=== PATIENT | female | born 1985 | race Caucasian/White ===

== ENCOUNTER → 2018-05-05 | Outpatient (CLI) | payer OTHER | LOC: FIMAGING 07:25 | PROVIDERS: ATTEND Advanced Practice Midwife | DX: O09.292 Supervision of pregnancy with other poor reproductive or obstetric history, second trimester (principal); O99.282 Endocrine, nutritional and metabolic diseases complicating pregnancy, second trimester; Z3A.20 20 weeks gestation of pregnancy ==

== ENCOUNTER 2018-08-30 19:50 | Observation (INO) | payer SELFPAY | END 2018-08-30 21:33 | disposition home or self-care (01) | LOC: FLD 19:50 | PROVIDERS: ADMIT Advanced Practice Midwife; ATTEND Advanced Practice Midwife | DX: Z03.71 Encounter for suspected problem with amniotic cavity and membrane ruled out (principal); Z3A.36 36 weeks gestation of pregnancy | CPT/HCPCS: G0378 ==

== ENCOUNTER 2018-09-19 16:42 | Inpatient (IN) | payer SELFPAY ==
[2018-09-19] MEDS ORDERED: LR 1,000 ML IV PRN (16:48)
[2018-09-19] MEDS ORDERED: MISOPROSTOL 200 MCG TAB PO PRN (16:48)
[2018-09-19] MEDS ORDERED: OLIVE OIL 118 ML BTL MISC PRN (16:48)
[2018-09-19] MEDS ORDERED: OXYTOCIN/RINGERS LACTATE 1,000 ML IV PRN (16:48)
[2018-09-19] MEDS ORDERED: AMMONIA AROMATIC 1 EACH AMP IH PRN (16:48)
[2018-09-19] MEDS ORDERED: LIDOCAINE 1% 300 MG/30 ML SDV SC PRN (16:48)
[2018-09-19] MEDS ORDERED: TERBUTALINE SULFATE 1 MG/ML VIAL IV PRN (16:48)
[2018-09-19] MEDS ORDERED: EPSOM SALT 454 GM TP PRN (16:48)
[2018-09-19] MEDS ORDERED: IBUPROFEN 600 MG TAB PO PRN (16:48)
[2018-09-19 18:36] LABS: PLATELET COUNT 206 10^3/uL (150-400)
[2018-09-19] MEDS ORDERED: MISOPROSTOL 200 MCG TAB ONE (18:39)
[2018-09-19] MEDS ORDERED: OXYTOCIN 10 UNIT/ML VIAL ONE (18:39)
[2018-09-19] MEDS ORDERED: LIDOCAINE 1% 300 MG/30 ML SDV ONE (18:39)
[2018-09-19] MEDS ORDERED: AMMONIA AROMATIC 1 EACH AMP IH ONE (18:39)
[2018-09-19] MEDS ORDERED: TERBUTALINE SULFATE 1 MG/ML VIAL ONE (18:39)
[2018-09-19] MEDS ORDERED: OLIVE OIL 118 ML BTL ONE (18:39)
[2018-09-19] MEDS ORDERED: PENICILLIN G POTASSIUM 5,000,000 UNIT in D5W 150 ML IV ONE (18:58)
--- NOTE | 2018-09-19 19:33 | PDGENHP ---
History and Physical History and Physical: Care: [facility] HPI: Patient is a 33 yo G 4 P 1 @ 39.4 weeks that presents to L&D with complaints of uterine contractions since last night getting stronger and q 2-3 minutes as well as SROM at 1530, clear fluid. EDC: 09-22-2018 which is based on LMP: which is known and consistent with Ultrasound at 7 weeks. Her is complicated by: history of previous csection Review of Systems: Constitutional: Denies any fever, chills, or fatigue HEENT: denies any visual changes, difficulty swallowing, hearing loss Cardiovascular: Denies any chest pain, palpitations, leg swelling Respiratory: denies any cough, wheezing, or shortness of breathe GI: Denies any nausea, vomiting, diarrhea, constipation : denies any dysuria, urgency, frequency, vaginal bleeding Musculoskeletal: denies any muscle or bone pain Skin: denies any rashes Neuro: denies any headache, seizures, lightheadedness, dizziness, or loss of consciousness Psychiatric: denies any depression, anxiety, or SI/HI thoughts HISTORY: Previous OB history: Low transverse primary csection for intolerance to labor. PROM'd and was on pitocin for 20 hours. Past medical history: hypothyroid - levels have been normal with medication through out ; history of asthma occasionally uses albuterol Past surgical history: csection; ankle surgery, wisdome teeth Social: Denies any alcohol, tobacco, or drug use. Family history: Not relevant Medications: PNV Allergies (list reaction): Codeine LABS: Rh: A+ ABS: Neg Rubella: Immune HbsAg: NR HIV: NR VDRL: NR 1hr: 74 GC: Neg Chlamydia: Neg GBS: + BMI: (prepreg) 25 PHYSICAL EXAM: Constitutional: WN, A&Ox3 HEENT: normocephalic atraumatic, supple Skin: Warm, dry, intact Heart: RRR, no murmur Chest: CTA-B Abdomen: Soft, nontender, gravid SVE: Declined Extremities: neg edema, negative homans sign Neuro: grossly normal Psych: normal affect U/S: Vertex; posterior presentation assessment: FHT baseline 125-135; +accels, occasional variable decels, moderate variability Contractions: irregular; when she first arrived q 3 minutes however have spaced out quite a bit after several attempts to start IV Assessment: 1) 33 yo G 4 P 1 with IUP@ 39.3 2) latent labor 3) GBS + 4) Overall Cat 1 FHR tracing 5) TOLAC 6) Posterior presentation Plan: 1) Admit to L&D 2) Dr Lassiter notified of admit and status; will advise when patient becomes active so she can be in house per protocol for as well as anesthesia 3) Initially declined antibiotics for GBS + status; after discussing further with her and her is now consenting to treatment 4) Encouraging walking, nipple stimulation and position changes to encourage labor 5) Consider pitocin augmentation however patient is reluctant to do this; will discuss if labor does not progress over the next several hours 6) Continuous monitoring Today's visit was approximately 30 min, of which >50% of visit, was spent face to face with pt on direct counseling/coordination of care.
[2018-09-19] MEDS: CALCIUM CARBONATE 500 MG CHEWABLE TAB PO PRN (20:10)
--- NOTE | 2018-09-19 21:55 | OBPROG ---
Labor Progress Note Assessment/Plan: Assessment: Plan: 09/19/18 21:51 A: Patient not in active labor or regularly socorro. P: Pt planning on resting for now. Will advise ambulation when she wakes up and readdress the recommendation for pitocin augmentation. Pt is very concerned about using pitocin as she is concerned that she will have a repeat csection for intolerance. For now continue monitoring. Subjective/Intrapartum Course: 09/19/18 21:49 Pt sleeping. Had encouraged ambulation as well as nipple stimulation however told RN she was tired and wanted to try to sleep with the peanut ball to help baby get into better position. Objective: 09/19/18 17:50 Patient ABO/Rh A POSITIVE 09/19/18 17:50 - SVE Membranes: SROM Amniotic Fluid Color: Clear - Contraction Pattern Assessment Current Contraction Pattern: Irregular - FHR Assessment Freeman FHR (bpm): 130 (+ accels; no decels) FHR Pattern Variability: Moderate FHR Category: 1 Oxytocin Orders Assessment - Pre-Induction/Augmentation Assessment Gestational Age: 39 week(s) and 4 day(s) ICD10 Worksheet Patient Problems: Problems Problem Status Onset Group beta Strep positive Acute Uterine scar from previous delivery Acute Previous section Acute
--- NOTE | 2018-09-19 22:00 | OBPROG ---
Labor Progress Note Assessment/Plan: Assessment: Plan: 09/19/18 21:51 A: Patient not in active labor or regularly socorro. P: Pt planning on resting for now. Will advise ambulation when she wakes up and readdress the recommendation for pitocin augmentation. Pt is very concerned about using pitocin as she is concerned that she will have a repeat csection for intolerance. For now continue monitoring. 09/19/18 21:59 Active labor progressing; Coping well P: Expectant Management Anticipate Subjective/Intrapartum Course: 09/19/18 21:49 Pt sleeping. Had encouraged ambulation as well as nipple stimulation however told RN she was tired and wanted to try to sleep with the peanut ball to help baby get into better position. 09/19/18 21:57 Pt experiencing a lot of back pain. Contractions back to back. Lots of position changes. Has good support from partner, solid waste truck driver and her mother. Tried nitrous, did't like it. Objective: 09/19/18 17:50 Patient ABO/Rh A POSITIVE 09/19/18 17:50 - SVE Membranes: SROM Amniotic Fluid Color: Clear - Contraction Pattern Assessment Current Contraction Pattern: Irregular - FHR Assessment Fereman FHR (bpm): 140 (intermittent monitoring finding fht's 140's to 150's; no decels) Oxytocin Orders Assessment - Pre-Induction/Augmentation Assessment Gestational Age: 39 week(s) and 4 day(s) ICD10 Worksheet Patient Problems: Problems Problem Status Onset Group beta Strep positive Acute Uterine scar from previous delivery Acute Previous section Acute
--- NOTE | 2018-09-19 23:55 | OBPROG ---
Labor Progress Note Assessment/Plan: Assessment: Plan: 09/19/18 21:51 A: Patient not in active labor or regularly socorro. P: Pt planning on resting for now. Will advise ambulation when she wakes up and readdress the recommendation for pitocin augmentation. Pt is very concerned about using pitocin as she is concerned that she will have a repeat csection for intolerance. For now continue monitoring. 09/19/18 21:59 Active labor progressing; Coping well P: Expectant Management Anticipate 09/19/18 23:52 A: PROM; contractions have mostly discontinued Category 2 strip GBS + P: Due for second dose of PCN in next hour Discussed need to augment labor and offered pitocin augmentation. She would like to avoid that so plans to get out of bed and walk to help stimulate contractions. Also discussed nippled stimulation. If contractions have not picked up by 0330 will consider pt will consider starting pitocin augmentation. Subjective/Intrapartum Course: 09/19/18 21:49 Pt sleeping. Had encouraged ambulation as well as nipple stimulation however told RN she was tired and wanted to try to sleep with the peanut ball to help baby get into better position. 09/19/18 21:57 Error; charted on wrong patient 09/19/18 23:50 Pt now awake. States she is having minimal contractions. Objective: 09/19/18 17:50 Patient ABO/Rh A POSITIVE 09/19/18 17:50 - SVE Membranes: SROM Amniotic Fluid Color: Clear - Contraction Pattern Assessment Current Contraction Pattern: Irregular - FHR Assessment Freeman FHR (bpm): 135 (possible variable decel noted however did not picking supervisor well; will continue to monitor) FHR Pattern Variability: Moderate FHR Category: 2 Oxytocin Orders Assessment - Pre-Induction/Augmentation Assessment Gestational Age: 39 week(s) and 4 day(s) ICD10 Worksheet Patient Problems: Problems Problem Status Onset Group beta Strep positive Acute Uterine scar from previous delivery Acute Previous section Acute
[2018-09-20] MEDS: PENICILLIN G POTASSIUM 2,500,000 UNIT in D5W 150 ML IV SCH ×5 (00:55→21:45)
[2018-09-20] MEDS: CALCIUM CARBONATE 500 MG CHEWABLE TAB PO PRN (02:09)
--- NOTE | 2018-09-20 04:50 | OBPROG ---
Labor Progress Note Assessment/Plan: Assessment: Plan: 09/19/18 21:51 A: Patient not in active labor or regularly socorro. P: Pt planning on resting for now. Will advise ambulation when she wakes up and readdress the recommendation for pitocin augmentation. Pt is very concerned about using pitocin as she is concerned that she will have a repeat csection for intolerance. For now continue monitoring. 09/19/18 21:59 Active labor progressing; Coping well P: Expectant Management Anticipate 09/19/18 23:52 A: PROM; contractions have mostly discontinued Category 2 strip GBS + P: Due for second dose of PCN in next hour Discussed need to augment labor and offered pitocin augmentation. She would like to avoid that so plans to get out of bed and walk to help stimulate contractions. Also discussed nippled stimulation. If contractions have not picked up by 0330 will consider pt will consider starting pitocin augmentation. 09/20/18 04:50 A: PROM; not laboring Overall Category 1 strip GBS +; receiving 3rd dose of antibiotics P: Will allow pt to sleep and readdress need to get labor augmented, options to including natural methods and/or pitocin augmentation. Subjective/Intrapartum Course: 09/19/18 21:49 Pt sleeping. Had encouraged ambulation as well as nipple stimulation however told RN she was tired and wanted to try to sleep with the peanut ball to help baby get into better position. 09/19/18 21:57 Error; charted on wrong patient 09/19/18 23:50 Pt now awake. States she is having minimal contractions. 09/20/18 04:47 Pt had been up walking the hallways. Now sleeping very soundly. Equipment Operator Warehouse is with them. States she is having the occasional contraction. Per the director of development pt is wanting to decline pitocin augmentation for now and is hoping to get some sleep as she has been up for the past several nights soc[place] Objective: 09/19/18 17:50 Patient ABO/Rh A POSITIVE 09/19/18 17:50 - SVE Membranes: SROM Amniotic Fluid Color: Clear - Contraction Pattern Assessment Current Contraction Pattern: Irregular - FHR Assessment Freeman FHR (bpm): 130 (very occasional variable decel; overall a category 1 strip) FHR Pattern Variability: Moderate FHR Category: 1 Oxytocin Orders Assessment - Pre-Induction/Augmentation Assessment Gestational Age: 39 week(s) and 4 day(s) ICD10 Worksheet Patient Problems: Problems Problem Status Onset Group beta Strep positive Acute Uterine scar from previous delivery Acute Previous section Acute
--- NOTE | 2018-09-20 10:33 | OBPROG ---
Labor Progress Note Assessment/Plan: Assessment: Plan: 09/19/18 21:51 A: Patient not in active labor or regularly socorro. P: Pt planning on resting for now. Will advise ambulation when she wakes up and readdress the recommendation for pitocin augmentation. Pt is very concerned about using pitocin as she is concerned that she will have a repeat csection for intolerance. For now continue monitoring. 09/19/18 21:59 Active labor progressing; Coping well P: Expectant Management Anticipate 09/19/18 23:52 A: PROM; contractions have mostly discontinued Category 2 strip GBS + P: Due for second dose of PCN in next hour Discussed need to augment labor and offered pitocin augmentation. She would like to avoid that so plans to get out of bed and walk to help stimulate contractions. Also discussed nippled stimulation. If contractions have not picked up by 0330 will consider pt will consider starting pitocin augmentation. 09/20/18 04:50 A: PROM; not laboring Overall Category 1 strip GBS +; receiving 3rd dose of antibiotics P: Will allow pt to sleep and readdress need to get labor augmented, options to including natural methods and/or pitocin augmentation. Subjective/Intrapartum Course: 09/19/18 21:49 Pt sleeping. Had encouraged ambulation as well as nipple stimulation however told RN she was tired and wanted to try to sleep with the peanut ball to help baby get into better position. 09/19/18 21:57 Error; charted on wrong patient 09/19/18 23:50 Pt now awake. States she is having minimal contractions. 09/20/18 04:47 Pt had been up walking the hallways. Now sleeping very soundly. [place] is with them. States she is having the occasional contraction. Per the residential door unit installer pt is wanting to decline pitocin augmentation for now and is hoping to get some sleep as she has been up for the past several nights soc[place] 09/20/18 09:24 Pt has slept most of the night. Having the occasional contraction but nothing significant. [place] and here Objective: 09/19/18 17:50 Patient ABO/Rh A POSITIVE 09/19/18 17:50 Afebrile FHT baseline 120; mod maday; + accels; no decels - SVE Membranes: SROM Amniotic Fluid Color: Clear - Contraction Pattern Assessment Current Contraction Pattern: Irregular Oxytocin Orders Assessment - Pre-Induction/Augmentation Assessment Gestational Age: 39 week(s) and 4 day(s) ICD10 Worksheet Patient Problems: Problems Problem Status Onset Group beta Strep positive Acute Uterine scar from previous delivery Acute Previous section Acute
--- NOTE | 2018-09-20 11:32 | OBPROG ---
Labor Progress Note Assessment/Plan: Assessment: Plan: 09/19/18 21:51 A: Patient not in active labor or regularly socorro. P: Pt planning on resting for now. Will advise ambulation when she wakes up and readdress the recommendation for pitocin augmentation. Pt is very concerned about using pitocin as she is concerned that she will have a repeat csection for intolerance. For now continue monitoring. 09/19/18 21:59 Active labor progressing; Coping well P: Expectant Management Anticipate 09/19/18 23:52 A: PROM; contractions have mostly discontinued Category 2 strip GBS + P: Due for second dose of PCN in next hour Discussed need to augment labor and offered pitocin augmentation. She would like to avoid that so plans to get out of bed and walk to help stimulate contractions. Also discussed nippled stimulation. If contractions have not picked up by 0330 will consider pt will consider starting pitocin augmentation. 09/20/18 04:50 A: PROM; not laboring Overall Category 1 strip GBS +; receiving 3rd dose of antibiotics P: Will allow pt to sleep and readdress need to get labor augmented, options to including natural methods and/or pitocin augmentation. 09/20/18 11:10 Overall category 1 strip Not laboring; 09/20/18 11:10 Plan: Reviewed with Dr Horn and he did come in to discuss with pt as well. Because of occasional variable decel do need to continue EFM. Will discontinue PCN for now until actively socorro or starting pitocin. Plan is to start pitocin at 3:30 if not actively socorro at that point. Reviewed risks versus benefits of waiting versus starting augmentatin now. She will be starting nipple stimulation per protocol now. Subjective/Intrapartum Course: 09/19/18 21:49 Pt sleeping. Had encouraged ambulation as well as nipple stimulation however told RN she was tired and wanted to try to sleep with the peanut ball to help baby get into better position. 09/19/18 21:57 Error; charted on wrong patient 09/19/18 23:50 Pt now awake. States she is having minimal contractions. 09/20/18 04:47 Pt had been up walking the hallways. Now sleeping very soundly. Auto Fleet Manager is with them. States she is having the occasional contraction. Per the avionics repair technician pt is wanting to decline pitocin augmentation for now and is hoping to get some sleep as she has been up for the past several nights socorro 09/20/18 09:24 Pt has slept most of the night. Having the occasional contraction but nothing significant. Auto Fleet Manager and here 09/20/18 11:08 Dona has been up walking around. Occasional contraction. Plans on starting nipple stimulation and then acupuncture at 1:30. Is willing to start pitocin augmentation at 3:30 if no labor. Objective: 09/19/18 17:50 Patient ABO/Rh A POSITIVE 09/19/18 17:50 FHT baseline 130 to 140's; mod maday; + accels; occasional variable decel - SVE Membranes: SROM Amniotic Fluid Color: Clear - Contraction Pattern Assessment Current Contraction Pattern: Irregular Oxytocin Orders Assessment - Pre-Induction/Augmentation Assessment Gestational Age: 39 week(s) and 4 day(s) ICD10 Worksheet Patient Problems: Problems Problem Status Onset Group beta Strep positive Acute Uterine scar from previous delivery Acute Previous section Acute
--- NOTE | 2018-09-20 14:58 | SOAPPROG ---
SOAP Progress Note Assessment/Plan: Assessment: Acupuncture requested to help encourage contractions. Patient is also experiencing nausea. Treatment: DU 20/Si Pickett Miguel: Relax the sacrum and reduce LBP. Calm the pickett. Local: BL 23 - 32 bilateral w e-stim: increase contractions. Reduce back labor. BL 24: local point for back pain. Right Side: ST 36: Balance SP/ST meridians to reduce nausea and improve overall energy. GB 34: Dilate the cervix. Empirical point to relax the tendons. Balance GB/LR. Relax the waist. ST 36 - GB 34 w estim. GB 40 Balance the GB, relax the waist. GB 41 Master point of Trudi Cowart. Relax the waist. ST 43: Falguni point of ST meridian. Relieve nausea. BL 65: Falguni point of BL. Relieve back spasms. Encourage downward movement of baby. Left Side: ST 36 GB 34 Acupuncture points chosen using the treatment principles of Dr. Mustafa's Balance Method. Plan: 09/20/18 14:52 Objective: Laboratory Results 09/19/18 17:50 ICD10 Worksheet Patient Problems: Problems Problem Status Onset Group beta Strep positive Acute Uterine scar from previous delivery Acute Previous section Acute
[2018-09-20] MEDS ORDERED: LR 500 ML IV PRN (16:02)
--- NOTE | 2018-09-20 16:02 | OBPROG ---
Labor Progress Note Assessment/Plan: Assessment: Plan: 09/19/18 21:51 A: Patient not in active labor or regularly socorro. P: Pt planning on resting for now. Will advise ambulation when she wakes up and readdress the recommendation for pitocin augmentation. Pt is very concerned about using pitocin as she is concerned that she will have a repeat csection for intolerance. For now continue monitoring. 09/19/18 21:59 Active labor progressing; Coping well P: Expectant Management Anticipate 09/19/18 23:52 A: PROM; contractions have mostly discontinued Category 2 strip GBS + P: Due for second dose of PCN in next hour Discussed need to augment labor and offered pitocin augmentation. She would like to avoid that so plans to get out of bed and walk to help stimulate contractions. Also discussed nippled stimulation. If contractions have not picked up by 0330 will consider pt will consider starting pitocin augmentation. 09/20/18 04:50 A: PROM; not laboring Overall Category 1 strip GBS +; receiving 3rd dose of antibiotics P: Will allow pt to sleep and readdress need to get labor augmented, options to including natural methods and/or pitocin augmentation. 09/20/18 11:10 Overall category 1 strip Not laboring; 09/20/18 11:10 Plan: Reviewed with Dr Horn and he did come in to discuss with pt as well. Because of occasional variable decel do need to continue EFM. Will discontinue PCN for now until actively socorro or starting pitocin. Plan is to start pitocin at 3:30 if not actively socorro at that point. Reviewed risks versus benefits of waiting versus starting augmentatin now. She will be starting nipple stimulation per protocol now. 09/20/18 15:59 Prolonged rupture of membranes Afebrile ROP presentation P) Reassured that the presentation is normal and without strong contractions unlikely to change position. She would like to take shower and then is ready to start pitocin augmentation. Will start at 1 mu/hr and go up by 1 every 30 minutes. Will restart PCN when contractions are consistent. Subjective/Intrapartum Course: 09/19/18 21:49 Pt sleeping. Had encouraged ambulation as well as nipple stimulation however told RN she was tired and wanted to try to sleep with the peanut ball to help baby get into better position. 09/19/18 21:57 Error; charted on wrong patient 09/19/18 23:50 Pt now awake. States she is having minimal contractions. 09/20/18 04:47 Pt had been up walking the hallways. Now sleeping very soundly. [place] is with them. States she is having the occasional contraction. Per the business education instructor pt is wanting to decline pitocin augmentation for now and is hoping to get some sleep as she has been up for the past several nights soc[place] 09/20/18 09:24 Pt has slept most of the night. Having the occasional contraction but nothing significant. Field Naturalist and here 09/20/18 11:08 Dona has been up walking around. Occasional contraction. Plans on starting nipple stimulation and then acupuncture at 1:30. Is willing to start pitocin augmentation at 3:30 if no labor. 09/20/18 15:57 Just finished acupuncture treatment. Very concerned about baby's position. Requesting ultrasound as she may decide to have epidural if posterior. Objective: 09/19/18 17:50 Patient ABO/Rh A POSITIVE 09/19/18 17:50 US - Vertex presentation; ROP presentation. - SVE Membranes: SROM Amniotic Fluid Color: Clear - Contraction Pattern Assessment Current Contraction Pattern: Irregular - FHR Assessment Freeman FHR (bpm): 140 FHR Pattern Variability: Moderate Oxytocin Orders Assessment - Pre-Induction/Augmentation Assessment Gestational Age: 39 week(s) and 4 day(s) ICD10 Worksheet Patient Problems: Problems Problem Status Onset Group beta Strep positive Acute Uterine scar from previous delivery Acute Previous section Acute
[2018-09-20] MEDS ORDERED: OXYTOCIN/RINGERS LACTATE 500 ML IV SCH (16:30)
[2018-09-20] MEDS ORDERED: ONDANSETRON 4 MG/2 ML VIAL ONE (19:20)
--- NOTE | 2018-09-20 20:14 | PREANESOB ---
Obstetric Pre-Anesthesia Info - General Info Proposed Procedure: : 4 Para: 1 SANJIV: 09/22/18 Gestational Age: 39 week(s) and 4 day(s) - Info Status: Full Term Monitors: External FHR Pattern: Reassuring - Labor Status Rupture of Membranes Date: 09/19/18 Rupture of Membranes Time: 15:30 Amniotic Fluid Color: Clear Anesthesia Allergies/Adverse Reactions: Allergy/AdvReac Type Severity Reaction Status Date / Time codeine Allergy Mild Projectile Verified 08/30/18 20:25 vomiting Home Medications: Medication Instructions Recorded Cetirizine HCl [ZYRTEC] 10 mg PO 08/30/18 Vit27&Calcium/Iron/FA 1 each PO DAILY 08/30/18 [ Rx 1 Tablet (RX)] Visit Medications: Generic Name Dose Route Start Last Admin Trade Name Freq PRN Reason Stop Dose Admin Ammonia (Aromatic Spirit) 1 each 09/19/18 16:48 Ammonia Aromatic IH 09/29/18 16:47 ONCE PRN Fainting Calcium Carbonate 500 mg 09/19/18 18:35 09/20/18 02:09 Tums PO 03/18/19 18:34 500 mg TID PRN Administration Indigestion Oxytocin/Lactated Ringer's 1,000 mls @ 0 mls/hr 09/19/18 16:48 Pitocin 20 Units/Lr (Premix) IV PRN PRN Post bleeding As Directed Penicillin G Potassium 2,500, 155 mls @ 320 mls/hr 09/20/18 01:00 09/20/18 13 :51 000 unit/ Dextrose IV 10/20/18 00:59 Not Given Q4HRS TYSHAWN Protocol Lactated Ringer's 500 mls @ 500 mls/hr 09/20/18 16:02 Lr IV 09/21/18 16:02 PRN PRN Maternal Hypotension Oxytocin/Lactated Ringer's 500 mls @ 0 mls/hr 09/20/18 16:30 09/20/18 16:45 Pitocin 30 Units/Lr (Premix) IV 03/19/19 16:29 500 mls CONT TYSHAWN Administration Protocol Per Protocol Ibuprofen 600 mg 09/19/18 16:48 Motrin PO ONCE PRN post , pain Lidocaine HCl 300 mg 09/19/18 16:48 Lidocaine Hcl 1% SC 03/18/19 16:47 ONCE PRN episiotomy Magnesium Sulfate 454 gm 09/19/18 16:48 Epsom Salt TP 03/18/19 16:47 Q1H PRN perineal discomfort Misoprostol 800 - 1,000 mcg 09/19/18 16:48 Cytotec PO 03/18/19 16:47 ONCE PRN Vaginal Atony/Bleeding [employer] Oil 118 ml 09/19/18 16:48 Sweet Oil MISC 03/18/19 16:47 ONCE PRN perineal massage Terbutaline Sulfate 0.25 mg 09/19/18 16:48 Brethine IV 03/18/19 16:47 ONCE PRN Tachysystole Discontinued Medications Generic Name Dose Route Start Last Admin Trade Name Freq PRN Reason Stop Dose Admin Ammonia (Aromatic Spirit) Confirm 09/19/18 18:39 Ammonia Aromatic Administered 09/19/18 18:40 Dose 1 each IH .STK-MED ONE Lactated Ringer's 1,000 mls @ 0 mls/hr 09/19/18 16:48 09/19/18 20:14 Lr IV 09/20/18 16:47 1,000 mls PRN PRN Administration SEE PROTOCOL CONDITIONS Protocol Per Protocol Penicillin G Potassium 5,000, 160 mls @ 320 mls/hr 09/19/18 18:58 09/19/18 20 :15 000 unit/ Dextrose IV 09/19/18 19:27 160 mls ONCE ONE Administration Lidocaine HCl Confirm 09/19/18 18:39 Lidocaine Hcl 1% Administered 09/19/18 18:40 Dose 300 mg .ROUTE .STK-MED ONE Misoprostol Confirm 09/19/18 18:39 Cytotec Administered 09/19/18 18:40 Dose 1,000 mcg .ROUTE .STK-MED ONE [employer] Oil Confirm 09/19/18 18:39 Sweet Oil Administered 09/19/18 18:40 Dose 118 ml .ROUTE .STK-MED ONE Ondansetron HCl Confirm 09/20/18 19:20 Zofran Administered 09/20/18 19:21 Dose 4 mg .ROUTE .STK-MED ONE Oxytocin Confirm 09/19/18 18:39 Pitocin Administered 09/19/18 18:40 Dose 40 unit .ROUTE .STK-MED ONE Terbutaline Sulfate Confirm 09/19/18 18:39 Brethine Administered 09/19/18 18:40 Dose 1 mg .ROUTE .STK-MED ONE - Vital Signs Height/Weight (Nursing): Height 165.1 cm Weight 77.564 kg Labs: 09/19/18 17:50 Patient ABO/Rh A POSITIVE 09/19/18 17:50 - Plan Anesthetic Plan: GETA if uterine rupture occurs during
[2018-09-20] MEDS ORDERED: BUPIVACAINE 0.25% 30 ML SDV ONE (20:32)
[2018-09-20] MEDS ORDERED: PHENYLEPHRINE HCL 100 MCG/ML SYR ONE (20:32)
[2018-09-20] MEDS ORDERED: fentaNYL 2MCG/ML/BUP 0.1% RTU 100 ML BAG EP ONE (20:32)
--- NOTE | 2018-09-20 21:05 | PREANESOB ---
Obstetric Pre-Anesthesia Info - General Info Proposed Procedure: NIXON : 4 Para: 1 SANJIV: 09/22/18 Gestational Age: 39 week(s) and 4 day(s) - Info Status: Full Term FHR Pattern: Reassuring - Labor Status Rupture of Membranes Date: 09/19/18 Rupture of Membranes Time: 15:30 Amniotic Fluid Color: Clear Indications for Labor Analgesia: Pain Control Labor Epidural: Proposed Anesthesia Allergies/Adverse Reactions: Allergy/AdvReac Type Severity Reaction Status Date / Time codeine Allergy Mild Projectile Verified 08/30/18 20:25 vomiting Home Medications: Medication Instructions Recorded Cetirizine HCl [ZYRTEC] 10 mg PO 08/30/18 Vit27&Calcium/Iron/FA 1 each PO DAILY 08/30/18 [ Rx 1 Tablet (RX)] Visit Medications: Generic Name Dose Route Start Last Admin Trade Name Freq PRN Reason Stop Dose Admin Ammonia (Aromatic Spirit) 1 each 09/19/18 16:48 Ammonia Aromatic IH 09/29/18 16:47 ONCE PRN Fainting Calcium Carbonate 500 mg 09/19/18 18:35 09/20/18 02:09 Tums PO 03/18/19 18:34 500 mg TID PRN Administration Indigestion Oxytocin/Lactated Ringer's 1,000 mls @ 0 mls/hr 09/19/18 16:48 Pitocin 20 Units/Lr (Premix) IV PRN PRN Post bleeding As Directed Penicillin G Potassium 2,500, 155 mls @ 320 mls/hr 09/20/18 01:00 09/20/18 13 :51 000 unit/ Dextrose IV 10/20/18 00:59 Not Given Q4HRS TYSHAWN Protocol Lactated Ringer's 500 mls @ 500 mls/hr 09/20/18 16:02 Lr IV 09/21/18 16:02 PRN PRN Maternal Hypotension Oxytocin/Lactated Ringer's 500 mls @ 0 mls/hr 09/20/18 16:30 09/20/18 16:45 Pitocin 30 Units/Lr (Premix) IV 03/19/19 16:29 500 mls CONT TYSHAWN Administration Protocol Per Protocol Ibuprofen 600 mg 09/19/18 16:48 Motrin PO ONCE PRN post , pain Lidocaine HCl 300 mg 09/19/18 16:48 Lidocaine Hcl 1% SC 03/18/19 16:47 ONCE PRN episiotomy Magnesium Sulfate 454 gm 09/19/18 16:48 Epsom Salt TP 03/18/19 16:47 Q1H PRN perineal discomfort Misoprostol 800 - 1,000 mcg 09/19/18 16:48 Cytotec PO 03/18/19 16:47 ONCE PRN Vaginal Atony/Bleeding [place] Oil 118 ml 09/19/18 16:48 Sweet Oil MISC 03/18/19 16:47 ONCE PRN perineal massage Terbutaline Sulfate 0.25 mg 09/19/18 16:48 Brethine IV 03/18/19 16:47 ONCE PRN Tachysystole Discontinued Medications Generic Name Dose Route Start Last Admin Trade Name Freq PRN Reason Stop Dose Admin Ammonia (Aromatic Spirit) Confirm 09/19/18 18:39 Ammonia Aromatic Administered 09/19/18 18:40 Dose 1 each IH .STK-MED ONE Bupivacaine HCl Confirm 09/20/18 20:32 Sensorcaine 0.25% Sdv Administered 09/20/18 20:33 Dose 30 ml .ROUTE .STK-MED ONE Fentanyl/Bupivacaine HCl Confirm 09/20/18 20:32 Fentanyl/Bupivacaine/Ns 2 Mcg/Ml 0.1% (Premix Administered 09/20/18 20:33 Dose 100 ml EP .STK-MED ONE Lactated Ringer's 1,000 mls @ 0 mls/hr 09/19/18 16:48 09/19/18 20:14 Lr IV 09/20/18 16:47 1,000 mls PRN PRN Administration SEE PROTOCOL CONDITIONS Protocol Per Protocol Penicillin G Potassium 5,000, 160 mls @ 320 mls/hr 09/19/18 18:58 09/19/18 20 :15 000 unit/ Dextrose IV 09/19/18 19:27 160 mls ONCE ONE Administration Lidocaine HCl Confirm 09/19/18 18:39 Lidocaine Hcl 1% Administered 09/19/18 18:40 Dose 300 mg .ROUTE .STK-MED ONE Misoprostol Confirm 09/19/18 18:39 Cytotec Administered 09/19/18 18:40 Dose 1,000 mcg .ROUTE .STK-MED ONE [place] Oil Confirm 09/19/18 18:39 Sweet Oil Administered 09/19/18 18:40 Dose 118 ml .ROUTE .STK-MED ONE Ondansetron HCl Confirm 09/20/18 19:20 Zofran Administered 09/20/18 19:21 Dose 4 mg .ROUTE .STK-MED ONE Oxytocin Confirm 09/19/18 18:39 Pitocin Administered 09/19/18 18:40 Dose 40 unit .ROUTE .STK-MED ONE Phenylephrine HCl Confirm 09/20/18 20:32 Neosynephrine Administered 09/20/18 20:33 Dose 1,000 mcg .ROUTE .STK-MED ONE Terbutaline Sulfate Confirm 09/19/18 18:39 Brethine Administered 09/19/18 18:40 Dose 1 mg .ROUTE .STK-MED ONE - Anesthesia History Response to Local Anesthetics: Not Applicable Anesthesia & Operative History: No Prior Problems Family Anesthesia History: Not Applicable - Social History Substance Use/Abuse: Denies - Vital Signs Height/Weight (Nursing): Height 165.1 cm Weight 77.564 kg - Focused Exam Neck exam: FROM Mallampati Score: Class 2 Mouth exam: normal dental/mouth exam Pulmonary: no respiratory distress Cardiovascular: regular rate and rhythym Labs: 09/19/18 17:50 Patient ABO/Rh A POSITIVE 09/19/18 17:50 - Plan Anesthetic Plan: NIXON Consent Signed and on Chart: Yes Patient/Guardian Understands and Agrees to Plan: Yes
[2018-09-20] MEDS ORDERED: PHENYLEPHRINE HCL 100 MCG/ML SYR IVP PRN (21:06)
[2018-09-20] MEDS ORDERED: ONDANSETRON 4 MG/2 ML VIAL IVP PRN ×2 (21:06→21:12)
[2018-09-20] MEDS ORDERED: NALOXONE HCL 0.4 MG/ML INJ IVP PRN (21:06)
[2018-09-20] MEDS ORDERED: METOCLOPRAMIDE 10 MG/2 ML VIAL IVP PRN (21:06)
--- NOTE | 2018-09-20 21:16 | OBPROG ---
Labor Progress Note Assessment/Plan: Assessment: Plan: 09/19/18 21:51 A: Patient not in active labor or regularly socorro. P: Pt planning on resting for now. Will advise ambulation when she wakes up and readdress the recommendation for pitocin augmentation. Pt is very concerned about using pitocin as she is concerned that she will have a repeat csection for intolerance. For now continue monitoring. 09/19/18 21:59 Active labor progressing; Coping well P: Expectant Management Anticipate 09/19/18 23:52 A: PROM; contractions have mostly discontinued Category 2 strip GBS + P: Due for second dose of PCN in next hour Discussed need to augment labor and offered pitocin augmentation. She would like to avoid that so plans to get out of bed and walk to help stimulate contractions. Also discussed nippled stimulation. If contractions have not picked up by 0330 will consider pt will consider starting pitocin augmentation. 09/20/18 04:50 A: PROM; not laboring Overall Category 1 strip GBS +; receiving 3rd dose of antibiotics P: Will allow pt to sleep and readdress need to get labor augmented, options to including natural methods and/or pitocin augmentation. 09/20/18 11:10 Overall category 1 strip Not laboring; 09/20/18 11:10 Plan: Reviewed with Dr Horn and he did come in to discuss with pt as well. Because of occasional variable decel do need to continue EFM. Will discontinue PCN for now until actively socorro or starting pitocin. Plan is to start pitocin at 3:30 if not actively socorro at that point. Reviewed risks versus benefits of waiting versus starting augmentatin now. She will be starting nipple stimulation per protocol now. 09/20/18 15:59 Prolonged rupture of membranes Afebrile ROP presentation P) Reassured that the presentation is normal and without strong contractions unlikely to change position. She would like to take shower and then is ready to start pitocin augmentation. Will start at 1 mu/hr and go up by 1 every 30 minutes. Will restart PCN when contractions are consistent. 09/20/18 21:15 Active labor progressing; Dr Horn and anesthesia in house. Category 1 strip P: Continue pitocin augmentatin per protocol Anticipate Subjective/Intrapartum Course: 09/19/18 21:49 Pt sleeping. Had encouraged ambulation as well as nipple stimulation however told RN she was tired and wanted to try to sleep with the peanut ball to help baby get into better position. 09/19/18 21:57 Error; charted on wrong patient 09/19/18 23:50 Pt now awake. States she is having minimal contractions. 09/20/18 04:47 Pt had been up walking the hallways. Now sleeping very soundly. Rico is with them. States she is having the occasional contraction. Per the tours hostess pt is wanting to decline pitocin augmentation for now and is hoping to get some sleep as she has been up for the past several nights socorro 09/20/18 09:24 Pt has slept most of the night. Having the occasional contraction but nothing significant. [place] and here 09/20/18 11:08 Dona has been up walking around. Occasional contraction. Plans on starting nipple stimulation and then acupuncture at 1:30. Is willing to start pitocin augmentation at 3:30 if no labor. 09/20/18 15:57 Just finished acupuncture treatment. Very concerned about baby's position. Requesting ultrasound as she may decide to have epidural if posterior. 09/20/18 21:13 Pt now comfortable with epidural in place. Had gotten up to 4 mu/hr pitocin and decreased due to contraction frequency and inability to cope. Contractions spaced out significantly. Increased to 3 mu/hr of pitocin and contractions again picked up. After trying multiple comfort measures decided she wanted to proceed to epidural. Happy with this decision. Objective: 09/19/18 17:50 Patient ABO/Rh A POSITIVE 09/19/18 17:50 - SVE Dilation (cm): 5 Effacement (%): 90 Station: -1 Membranes: SROM Amniotic Fluid Color: Clear - Contraction Pattern Assessment Current Contraction Pattern: Regular - FHR Assessment Freeman FHR (bpm): 130 FHR Pattern Variability: Moderate FHR Category: 1 Oxytocin Orders Assessment - Pre-Induction/Augmentation Assessment Gestational Age: 39 week(s) and 4 day(s) ICD10 Worksheet Patient Problems: Problems Problem Status Onset Group beta Strep positive Acute Uterine scar from previous delivery Acute Previous section Acute
[2018-09-20] MEDS ORDERED: LR 500 ML IV SCH (21:30)
--- NOTE | 2018-09-21 00:07 | OBPROG ---
Labor Progress Note Assessment/Plan: Assessment: Plan: 09/19/18 21:51 A: Patient not in active labor or regularly socorro. P: Pt planning on resting for now. Will advise ambulation when she wakes up and readdress the recommendation for pitocin augmentation. Pt is very concerned about using pitocin as she is concerned that she will have a repeat csection for intolerance. For now continue monitoring. 09/19/18 21:59 Active labor progressing; Coping well P: Expectant Management Anticipate 09/19/18 23:52 A: PROM; contractions have mostly discontinued Category 2 strip GBS + P: Due for second dose of PCN in next hour Discussed need to augment labor and offered pitocin augmentation. She would like to avoid that so plans to get out of bed and walk to help stimulate contractions. Also discussed nippled stimulation. If contractions have not picked up by 0330 will consider pt will consider starting pitocin augmentation. 09/20/18 04:50 A: PROM; not laboring Overall Category 1 strip GBS +; receiving 3rd dose of antibiotics P: Will allow pt to sleep and readdress need to get labor augmented, options to including natural methods and/or pitocin augmentation. 09/20/18 11:10 Overall category 1 strip Not laboring; 09/20/18 11:10 Plan: Reviewed with Dr Horn and he did come in to discuss with pt as well. Because of occasional variable decel do need to continue EFM. Will discontinue PCN for now until actively socorro or starting pitocin. Plan is to start pitocin at 3:30 if not actively socorro at that point. Reviewed risks versus benefits of waiting versus starting augmentatin now. She will be starting nipple stimulation per protocol now. 09/20/18 15:59 Prolonged rupture of membranes Afebrile ROP presentation P) Reassured that the presentation is normal and without strong contractions unlikely to change position. She would like to take shower and then is ready to start pitocin augmentation. Will start at 1 mu/hr and go up by 1 every 30 minutes. Will restart PCN when contractions are consistent. 09/20/18 21:15 Active labor progressing; Dr Horn and anesthesia in house. Category 1 strip P: Continue pitocin augmentatin per protocol Anticipate 09/21/18 00:08 Active labor progressing; inadequate contraction strength Category 1 strip Forebag present P: Discussed AROM of forebag to help with pressure on cervix. Pt declines. Continue to increase pitocin to adequate contraction strength. Dr Horn updated. Subjective/Intrapartum Course: 09/19/18 21:49 Pt sleeping. Had encouraged ambulation as well as nipple stimulation however told RN she was tired and wanted to try to sleep with the peanut ball to help baby get into better position. 09/19/18 21:57 Error; charted on wrong patient 09/19/18 23:50 Pt now awake. States she is having minimal contractions. 09/20/18 04:47 Pt had been up walking the hallways. Now sleeping very soundly. Beveling And Edging Machine Operator is with them. States she is having the occasional contraction. Per the mothers helper pt is wanting to decline pitocin augmentation for now and is hoping to get some sleep as she has been up for the past several nights socorro 09/20/18 09:24 Pt has slept most of the night. Having the occasional contraction but nothing significant. Beveling And Edging Machine Operator and here 09/20/18 11:08 Dona has been up walking around. Occasional contraction. Plans on starting nipple stimulation and then acupuncture at 1:30. Is willing to start pitocin augmentation at 3:30 if no labor. 09/20/18 15:57 Just finished acupuncture treatment. Very concerned about baby's position. Requesting ultrasound as she may decide to have epidural if posterior. 09/20/18 21:13 Pt now comfortable with epidural in place. Had gotten up to 4 mu/hr pitocin and decreased due to contraction frequency and inability to cope. Contractions spaced out significantly. Increased to 3 mu/hr of pitocin and contractions again picked up. After trying multiple comfort measures decided she wanted to proceed to epidural. Happy with this decision. 09/21/18 00:04 Comfortable with epidural in place. Has been sleeping Objective: 09/19/18 17:50 Patient ABO/Rh A POSITIVE 09/19/18 17:50 - SVE Dilation (cm): 6 Effacement (%): 100 Station: -1 Membranes: SROM (Forebag present) Amniotic Fluid Color: Clear - Contraction Pattern Assessment Current Contraction Pattern: Regular (q 3 to 4; palpate moderate on 6 mu/hr pitocin) - FHR Assessment Freeman FHR (bpm): 120 FHR Pattern Variability: Moderate FHR Category: 1 Oxytocin Orders Assessment - Pre-Induction/Augmentation Assessment Gestational Age: 39 week(s) and 4 day(s) ICD10 Worksheet Patient Problems: Problems Problem Status Onset Group beta Strep positive Acute Uterine scar from previous delivery Acute Previous section Acute
[2018-09-21] MEDS: CALCIUM CARBONATE 500 MG CHEWABLE TAB PO PRN ×2 (00:30→02:01)
[2018-09-21] MEDS: PENICILLIN G POTASSIUM 2,500,000 UNIT in D5W 150 ML IV SCH ×2 (01:53→06:33)
--- NOTE | 2018-09-21 04:19 | OBDEL ---
Info Type: Vaginal Presentation at Delivery: Vertex L&D Analgesia/Anesthesia Type: Epidural, Nitrous GBS+: Yes Intrapartum Medications: Generic Name Dose Route Start Last Admin Trade Name Sy PRN Reason Stop Dose Admin Calcium Carbonate 500 mg 09/19/18 18:35 09/21/18 02:01 Tums PO 03/18/19 18:34 500 mg TID PRN Administration Indigestion Penicillin G Potassium 2,500, 155 mls @ 320 mls/hr 09/20/18 01:00 09/21/18 01 :53 000 unit/ Dextrose IV 10/20/18 00:59 155 mls Q4HRS TYSHAWN Administration Protocol Oxytocin/Lactated Ringer's 500 mls @ 0 mls/hr 09/20/18 16:30 09/20/18 16:45 Pitocin 30 Units/Lr (Premix) IV 03/19/19 16:29 500 mls CONT TYSHAWN Administration Protocol Per Protocol [place] Oil 118 ml 09/19/18 16:48 09/21/18 03:37 Sweet Oil MISC 03/18/19 16:47 1 btl ONCE PRN Administration perineal massage Ondansetron HCl 4 mg 09/20/18 21:06 09/20/18 21:19 Zofran IVP 09/21/18 21:05 4 mg Q4HRS PRN Administration Nausea/Vomiting, Can't Take PO Discontinued Medications Generic Name Dose Route Start Last Admin Trade Name Sy PRN Reason Stop Dose Admin Lactated Ringer's 1,000 mls @ 0 mls/hr 09/19/18 16:48 09/19/18 20:14 Lr IV 09/20/18 16:47 1,000 mls PRN PRN Administration SEE PROTOCOL CONDITIONS Protocol Per Protocol Penicillin G Potassium 5,000, 160 mls @ 320 mls/hr 09/19/18 18:58 09/19/18 20 :15 000 unit/ Dextrose IV 09/19/18 19:27 160 mls ONCE ONE Administration - Hospital Course Intrapartum: 09/19/18 21:49 Pt sleeping. Had encouraged ambulation as well as nipple stimulation however told RN she was tired and wanted to try to sleep with the peanut ball to help baby get into better position. 09/19/18 21:57 Error; charted on wrong patient 09/19/18 23:50 Pt now awake. States she is having minimal contractions. 09/20/18 04:47 Pt had been up walking the hallways. Now sleeping very soundly. [place] is with them. States she is having the occasional contraction. Per the traffic engineering director pt is wanting to decline pitocin augmentation for now and is hoping to get some sleep as she has been up for the past several nights socorro 09/20/18 09:24 Pt has slept most of the night. Having the occasional contraction but nothing significant. Product Safety Consultant and here 09/20/18 11:08 Dona has been up walking around. Occasional contraction. Plans on starting nipple stimulation and then acupuncture at 1:30. Is willing to start pitocin augmentation at 3:30 if no labor. 09/20/18 15:57 Just finished acupuncture treatment. Very concerned about baby's position. Requesting ultrasound as she may decide to have epidural if posterior. 09/20/18 21:13 Pt now comfortable with epidural in place. Had gotten up to 4 mu/hr pitocin and decreased due to contraction frequency and inability to cope. Contractions spaced out significantly. Increased to 3 mu/hr of pitocin and contractions again picked up. After trying multiple comfort measures decided she wanted to proceed to epidural. Happy with this decision. 09/21/18 00:04 Comfortable with epidural in place. Has been sleeping Indications for Delivery: SROM Vaginal Delivery - Delivery Provider Delivery Physician/CNM: Daniela Jo - Labor and Delivery Onset of Contractions Date: 09/20/18 Onset of Contractions Time: 17:30 Onset of Contractions Type: Induced Rupture of Membranes Date: 09/19/18 Rupture of Membranes Time: 15:30 Rupture of Membranes Type: Spontaneous Amniotic Fluid Color: Clear Dilation Complete Date: 09/21/18 Dilation Complete Time: 03:21 Placenta Delivery Date: 09/21/18 Placenta Delivery Time: 04:02 Total Hours of Labor: 10 Laceration: 1st Degree (r labia; no repair indicated) Vaginal Sponge Count Correct: Yes Vaginal Needle Count Correct: Yes Vaginal Sweep Performed: Yes EBL: 250 Delivery Events: Nuchal Cord (Around neck and body) - Medications Labor Augmentation/Induction Methods Used: Pitocin Labor Augmentation/Induction Indication: Inadequate Contraction Frequency, Inadequate Contraction Strength, Other (Specify) (PROM) [place] Data SANJIV: 09/22/18 Gestational Age: 39 week(s) and 6 day(s) Freeman Delivery Date: 09/21/18 Delivery Time: 03:54 Sex of Infant: Female Score (1 Min): 8 Score (5 Min): 9 ICD10 Worksheet Patient Problems: Problems Problem Status Onset Group beta Strep positive Acute Uterine scar from previous delivery Acute , delivered Acute Previous section Acute - ICD10 Problem Qualifiers (1) , delivered
[2018-09-21] MEDS: ACETAMINOPHEN 325 MG TAB PO SCH ×4 (05:00→23:37)
[2018-09-21] MEDS: IBUPROFEN 600 MG TAB PO SCH ×3 (11:03→23:37)
--- NOTE | 2018-09-21 16:09 | POSTANESTH ---
Post Anesthetic Evaluation Cardiovascular Status: Normal, Stable Respiratory Status: Normal, Stable Level of Consciousness/Mental Status: Can Participate in Eval Pain Control: Adequate, Prn Tx Ordered Nausea/Vomiting Control: Adequate, Prn Tx Ordered Complications Possibly Related to Anesthesia: None Noted
[2018-09-21] MEDS: DOCUSATE SODIUM 100 MG CAP PO SCH (20:32)
[2018-09-22] MEDS: CALCIUM CARBONATE 500 MG CHEWABLE TAB PO PRN (02:09)
[2018-09-22] MEDS: ACETAMINOPHEN 325 MG TAB PO SCH ×2 (06:58→07:51)
[2018-09-22] MEDS: IBUPROFEN 600 MG TAB PO SCH ×2 (06:59→07:50)
[2018-09-22] MEDS: DOCUSATE SODIUM 100 MG CAP PO SCH (07:50)
--- NOTE | 2018-09-22 11:07 | OBGCSDC ---
General Delivery Information - General Info : 4 Para: 2 Abortions: 2 Type: Vaginal L&D Analgesia/Anesthesia Type: Epidural Admission Date: 09/19/18 Labs: Patient ABO/Rh A POSITIVE 09/19/18 17:50 Hct 38.0 % (38.0-47.0) 09/19/18 17:50 - Hospital Course Intrapartum: 09/19/18 21:49 Pt sleeping. Had encouraged ambulation as well as nipple stimulation however told RN she was tired and wanted to try to sleep with the peanut ball to help baby get into better position. 09/19/18 21:57 Error; charted on wrong patient 09/19/18 23:50 Pt now awake. States she is having minimal contractions. 09/20/18 04:47 Pt had been up walking the hallways. Now sleeping very soundly. Event Sales Manager is with them. States she is having the occasional contraction. Per the electrical plumbing supervisor pt is wanting to decline pitocin augmentation for now and is hoping to get some sleep as she has been up for the past several nights [place] 09/20/18 09:24 Pt has slept most of the night. Having the occasional contraction but nothing significant. Event Sales Manager and here 09/20/18 11:08 Dona has been up walking around. Occasional contraction. Plans on starting nipple stimulation and then acupuncture at 1:30. Is willing to start pitocin augmentation at 3:30 if no labor. 09/20/18 15:57 Just finished acupuncture treatment. Very concerned about baby's position. Requesting ultrasound as she may decide to have epidural if posterior. 09/20/18 21:13 Pt now comfortable with epidural in place. Had gotten up to 4 mu/hr pitocin and decreased due to contraction frequency and inability to cope. Contractions spaced out significantly. Increased to 3 mu/hr of pitocin and contractions again picked up. After trying multiple comfort measures decided she wanted to proceed to epidural. Happy with this decision. 09/21/18 00:04 Comfortable with epidural in place. Has been sleeping : 09/22/18 11:06 S) Pt doing well, reports min pain and bleeding. she is ambulating and voiding without difficulty. She is . She desires discharge home today. O) VSS, afebrile constitutional: WNWF, A&Ox3 HEENT: normocephalic, atraumatic, supple Heart: RRR, No murmur Chest: CTA-B Abdomen: Soft, nontender Uterus: Firm at U-2 Lochia: Minimal rubra Perineum: Intact, healing well Extremities: Trace edema, and negative Felix's sign Neuro: Grossly normal A) -year-old S/P PPD#1 going well P) Discharge home today Continue Pelvic rest x6wks Discussed danger signs (infection, preeclampsia, depression, heavy bleeding, etc) RTO in 2/4/6 weeks Vaginal - Delivery Provider Delivery Physician/CNM: Daniela Jo - Diagnosis Labor: Induced Rupture of Membranes Type: Spontaneous Amniotic Fluid Color: Clear Laceration: 1st Degree (r labia; no repair indicated) Delivery Events: Nuchal Cord (Around neck and body) - Delivery EBL: [address] [place] Data SANJIV: 09/22/18 Gestational Age: 40 week(s) and 0 day(s) [place] Delivery Date: 09/21/18 Delivery Time: 03:54 Sex of : Female [place] Weight (gm): 2910 g Score (1 Min): 8 Score (5 Min): 9 Discharge Information - Discharge Information Prescriptions: Ibuprofen [Motrin (*)] 600 mg PO Q6H #40 tab Condition: Good
[2018-09-22 12:44] VITALS: BP 111/66
== END 2018-09-22 14:15 | disposition home or self-care (01) | DRG 807 ==
LOC: FLD 16:42 → OBSVTOIN 16:42 → FOB 09-21 05:58
PROVIDERS: ADMIT Advanced Practice Midwife; ATTEND Advanced Practice Midwife
PROC: 10E0XZZ Delivery of Products of Conception, External Approach (ICD-10-PCS; principal; 2018-09-21)
DX: O34.219 Maternal care for unspecified type scar from previous cesarean delivery (principal); Z37.0 Single live birth; O70.0 First degree perineal laceration during delivery; Z3A.39 39 weeks gestation of pregnancy; O99.284 Endocrine, nutritional and metabolic diseases complicating childbirth; E03.9 Hypothyroidism, unspecified; O99.824 Streptococcus B carrier state complicating childbirth; O69.82X0 Labor and delivery complicated by other cord entanglement, without compression, not applicable or unspecified
CPT/HCPCS: J2370; J2405; J2540; J2590; J3105